=== PATIENT | female | born 1955 | race Caucasian/White ===

== ENCOUNTER 2023-07-15 12:01 | Inpatient (IN) | payer MEDICARE, MEDICAID, SELFPAY ==
[2023-07-15] VITALS (10 sets, daily range): BP systolic 0–162; BP diastolic 0–85; PULSE 0–96; RESP 14–18; TEMP 36.4–36.6; O2SAT 0–99; BMI 29.3
[2023-07-15] MEDS: OLANZapine 10 MG VIAL IM (12:20)
[2023-07-15] MEDS: LORazepam 2 MG/ML VIAL IM (12:20)
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
--- NOTE | 2023-07-15 12:40 | PC.NURSE ---
PT MEDICALLY/BEHAVIORAL (4 POINT RESTRAINT) INITIATED AT 1220 WITH , SECURITY, MANAGER REGIONAL, CLINICAL RN AND PCT AT BEDSIDE.
[2023-07-15 12:52] LABS: MANUAL DIFF FLAG NO
[2023-07-15 12:55] LABS: Basophils Percent Auto 0.2 % (0-2); Eosinophils Absolute Auto 0.1 X10*3/uL (0.0-0.4); Eosinophils Percent Auto 1.5 % (0-4); Hematocrit 42.7 % (37.0-47.0); Hemoglobin 13.7 g/dl (12.0-16.0); Imm Gran Abs Auto 0.03 X10*3/uL (0.00-0.03); Imm Gran Pct Auto 0.3 % (0.0-0.4); Lymphocytes Percent Auto 22.4 % (20-40); Mean Corpuscular HGB Conc 32.1 g/dl (31.0-35.0); Mean Corpuscular Hemoglobin 29.6 pg (27.0-33.0); Mean Corpuscular Volume 92.2 fL (80.0-98.0); Mean Platelet Volume 9.7 fL (9.4-12.3); Monocytes Absolute Auto 0.6 X10*3/uL (0.1-1.2); Monocytes Percent Auto 6.4 % (2-11); Neutrophils Absolute Auto 6.1 x10*3/uL (2.0-8.3); Neutrophils Percent Auto 69.2 % (45-73); Platelet Count 323 X10*3/uL (160-400); Red Blood Count 4.63 X10*6/uL (4.20-5.50); Red Cell Distribution Width 13.9 % (11.0-16.0); White Blood Count 8.8 X10*3/uL (4.8-10.8)
[2023-07-15 13:11] LABS: Acetaminophen LAB < 3 mcg/mL (<30); Salicylate < 5.0 mg/dL (15-30)
[2023-07-15 13:17] LABS: Alanine Aminotransferase 15 U/L (0-31); Albumin Level 3.8 g/dL (3.5-5.0); Alkaline Phosphatase 85 U/L (39-117); Anion Gap 13 (12-20); Aspartate Amino Transferase 24 U/L (5-31); Bilirubin Direct 0.2 mg/dL (0.0-0.5); Bilirubin Total 0.2 mg/dL (0.0-1.0); Blood Urea Nitrogen 8 mg/dL (9-16); Carbon Dioxide 24 mmol/L (22-29); Chloride 111 mmol/L (96-108); Creatinine Clr Calc Pharmacy 52.8; Estimated Glomerular Filt Rate > 60; Ethanol < 10 mg/dL; Glucose Random 132 mg/dL (60-115); Potassium 3.2 mmol/L (3.3-5.1); Sodium 145 mmol/L (135-145)
[2023-07-15 13:32] LABS: Influenza A PCR NEGATIVE (Negative); Influenza B PCR NEGATIVE (Negative); Resp Syncy Virus RNA Qual PCR NEGATIVE (Negative); SARS COV2 PCR INHOUSE NEGATIVE (Negative)
--- NOTE | 2023-07-15 13:41 | PC.NURSE ---
PT IS SLEEPING RESP EVEN AND UNLABORED. UNABLE TO MED AT THIS TIME PER MAR WITH POTASSIUM. AWARE.
--- NOTE | 2023-07-15 13:57 | PC.NURSE ---
Addendum entered by Charlette Rosa 07/15/23 14:00: THIS SMALL CONTAINER WAS RETURNED WITH THESE MEDS TO PT'S BELONGINGS. Original Note: THESE MEDS(ONE EACH, IN A SMALL CLEAR CONTAINER) WERE FOUND IN WITH PT'S BELONGINGS - SWEROQUEL 300MG, A VITO, BENADRYL 25MG, ASPIRIN 325MG AND ONE TABLET PLAIN WHITE WHICH COULD NOT BE IDENTIFIED.
[2023-07-15 14:48] LABS: Free T4 (Free Thyroxine) 0.94 ng/dL (0.71-1.85)
[2023-07-15] MEDS: Potassium Chloride Packet 20 MEQ PACKET 40 MEQ PO (19:07)
[2023-07-16 07:43] LABS: Appearance Urine Clear; Color Urine Yellow; Glucose Urine UA Negative (Negative); Leukocyte Esterase Urine Negative (Negative); Nitrite Urine Negative (Negative); PH 6.5 (5.0-9.0); Urine Blood Negative (Negative); Urine Ketones Trace mg/dL (Negative); Urine Protein Trace mg/dL (Neg-Trace)
--- NOTE | 2023-07-16 07:44 | PHA.MEDREC ---
Pharmacy Consult ? Medication Reconciliation Pharmacy has completed the medication reconciliation. Reviewed med rec done by nursing
[2023-07-16 07:48] LABS: Amphetamine Screen Urine Not Detected (Not Detect); Barbiturates, Urine Not Detected (Not Detect); Benzodiazepines Screen Urine Not Detected (Not Detect); Cannabinoid Screen Urine POSITIVE (Not Detect); Cocaine Screen Urine Not Detected (Not Detect); Fentanyl, urine Not Detected (Not Detect); Opiate Screen Urine Not Detected (Not Detect); Phencyclidine Screen Urine Not Detected (Not Detect)
[2023-07-16] MEDS: Levothyroxine Sodium 75 MCG TABLET PO (08:44)
[2023-07-16 08:51] VITALS: BP 247/92; PULSE 72; RESP 18; TEMP 36.9; O2SAT 97
[2023-07-16] MEDS: captopriL 25 MG TABLET 100 MG PO ×2 (08:53→20:42)
--- NOTE | 2023-07-16 08:56 | PC.NURSE ---
assumed care of pt at 0700. pt awake and alert, walking around unit. pt BP noted to be high and documented in worklist. Dr. Sherman made aware. pt medicated per jun. pt currently laying in bed trying to sleep. rr even/unlabored. plan of care ongoing.
[2023-07-16] MEDS: amLODIPine Besylate 10 MG TABLET PO (08:59)
--- NOTE | 2023-07-16 09:27 | ECG_ITS ---
Test Reason : QT INTERVAL Blood Pressure : / mmHG Vent. Rate : 066 BPM Atrial Rate : 066 BPM P-R Int : 122 ms QRS Dur : 074 ms QT Int : 412 ms P-R-T Axes : 063 060 039 degrees QTc Int : 431 ms Normal sinus rhythm Normal ECG No previous ECGs available Referred By: Veronique Alonzo Electronically Signed By:Luis E Meng
[2023-07-16 09:37] VITALS: BP 216/92; PULSE 64; RESP 16
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
--- NOTE | 2023-07-16 14:37 | PC.NURSE ---
inpatient sung-psych nurse's aware of pt elevated BP and to repeat BP once on floor.
[2023-07-16 15:16] VITALS: BP 189/88; PULSE 70; RESP 16; O2SAT 97
[2023-07-16 15:20] VITALS: TEMP 35.9
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
[2023-07-16 18:00] VITALS: BP 193/91; PULSE 62; RESP 18; TEMP 36.3; O2SAT 98
[2023-07-17] MEDS: Levothyroxine Sodium 75 MCG TABLET PO (06:29)
[2023-07-17 07:00] VITALS: BMI 26.7
[2023-07-17 08:23] LABS: Alanine Aminotransferase 16 U/L (0-31); Alkaline Phosphatase 86 U/L (39-117); Anion Gap 13 (12-20); Aspartate Amino Transferase 24 U/L (5-31); Bilirubin Total 0.5 mg/dL (0.0-1.0); Blood Urea Nitrogen 10 mg/dL (9-16); Carbon Dioxide 28 mmol/L (22-29); Chloride 106 mmol/L (96-108); Cholesterol 180 mg/dL (<200); Estimated Glomerular Filt Rate > 60; Glucose Fasting 103 mg/dL (60-99); HDL Cholesterol 51 mg/dL (>40); LDL Cholesterol Calculated 105 mg/dL (<100); Potassium 4.9 mmol/L (3.3-5.1); Sodium 142 mmol/L (135-145); Total Protein 7.6 g/dL (6.5-8.0); Triglycerides 123 mg/dL (<150)
[2023-07-17 08:30] VITALS: BP 146/85; PULSE 90; RESP 18; TEMP 36.1; O2SAT 97
[2023-07-17] MEDS: captopriL 25 MG TABLET 100 MG PO ×2 (09:00→20:53)
--- NOTE | 2023-07-17 12:01 | HO.PSYADMNOT ---
HPI Chief Complaint: Psychosis Diagnostics Vital Signs (24Hr): Vital Signs - 24 hr 07/16/23 15:16 07/16/23 15:20 07/16/23 18:00 Temperature 96.7 F L 97.3 F Pulse Rate 70 62 Respiratory Rate 16 18 Blood Pressure 189/88 H 193/91 H Pulse Oximetry 97 98 Oxygen Delivery Method Room Air Room Air 07/17/23 08:30 Temperature 97.0 F Pulse Rate 90 Respiratory Rate 18 Blood Pressure 146/85 H Pulse Oximetry 97 Oxygen Delivery Method Room Air BMI result Body Mass Index 29.3 Labs 07/15/23 12:47 07/17/23 07:53 Labs: Laboratory Results - last 48 hr 07/15/23 07/16/23 07/17/23 12:47 07:32 07:53 WBC 8.8 RBC 4.63 Hgb 13.7 Hct 42.7 MCV 92.2 MCH 29.6 MCHC 32.1 RDW 13.9 Plt Count 323 MPV 9.7 Immature Gran % (Auto) 0.3 Neut % (Auto) 69.2 Lymph % (Auto) 22.4 [place] % (Auto) 6.4 Eos % (Auto) 1.5 Baso % (Auto) 0.2 Lymph # (Auto) 2.0 [place] # (Auto) 0.6 Eos # (Auto) 0.1 Baso # (Auto) 0.0 Abs Immat Gran (auto) 0.03 Absolute Neuts (auto) 6.1 Absolute Nucleated RBC 0.000 Nucleated RBC % (auto) 0.0 Sodium 145 142 Potassium 3.2 L 4.9 D Chloride 111 H 106 Carbon Dioxide 24 28 Anion Gap 13 13 BUN 8 L 10 Creatinine 0.89 0.87 Estim Creat Clear Calc 52.8 54.0 Estimated GFR > 60 > 60 Random Glucose 132 H Fasting Glucose 103 H Calcium 9.0 10.0 D Magnesium 2.0 Total Bilirubin 0.2 0.5 Direct Bilirubin 0.2 AST 24 24 ALT 15 16 Alkaline Phosphatase 85 86 Total Protein 7.0 7.6 Albumin 3.8 4.0 Triglycerides 123 Cholesterol 180 LDL Cholesterol, Calc 105 H HDL Cholesterol 51 TSH 5.60 H Free T4 0.94 Urine Color Yellow Urine Appearance Clear Urine pH 6.5 Ur Specific [place] 1.020 Urine Protein Trace Urine Glucose (UA) Negative Urine Ketones Trace Urine Blood Negative Urine Nitrite Negative Ur Leukocyte Esterase Negative Salicylates < 5.0 L Urine Opiates Screen Not Detected Urine Fentanyl Screen Not Detected Acetaminophen < 3 Ur Barbiturates Screen Not Detected Ur Phencyclidine Scrn Not Detected Ur Amphetamines Screen Not Detected U Benzodiazepines Scrn Not Detected Urine Cocaine Screen Not Detected U Marijuana (THC) Screen POSITIVE H Ethyl Alcohol < 10 Influenza Type A (PCR) NEGATIVE Influenza Type B (PCR) NEGATIVE RSV RNA Qual (PCR) NEGATIVE SARS-CoV-2 RNA (RT-PCR) NEGATIVE Meds/Allergies Meds Home Medications ?Medication ?Instructions ?Recorded ?Confirmed ?Type captopril 100 mg tablet 100 mg PO BID 07/16/23 07/16/23 History levothyroxine 75 mcg tablet 75 mcg PO DAILY 07/16/23 07/16/23 History Allergies Allergies Allergy/AdvReac Type Severity Reaction Status Date / Time codeine Allergy Rash Verified 07/15/23 12:37 Assessment & Plan Statement Statement: I have reviewed the history and physical and performed a pertinent examination on my patient. No changes have occurred unless specified. If the History and Physical was not performed prior to admission, the Hospitalist's service will be consulted for completing the admission physical. Time Spent With Patient Time: Total time managing care of this patient today ____ minutes.
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
[2023-07-17 18:00] VITALS: BP 187/87; PULSE 58; RESP 16; TEMP 36.2; O2SAT 96
[2023-07-17] MEDS: QUEtiapine Fumarate 50 MG TABLET PO (20:53)
[2023-07-18] MEDS: Levothyroxine Sodium 75 MCG TABLET PO (05:55)
[2023-07-18] MEDS: Acetaminophen 325 MG TABLET 650 MG PO ×2 (05:59→20:45)
[2023-07-18 07:45] VITALS: BP 225/89; PULSE 72; RESP 16; TEMP 36.2; O2SAT 98
[2023-07-18] MEDS: captopriL 25 MG TABLET 100 MG PO ×2 (08:13→20:44)
[2023-07-18 08:35] VITALS: BP 180/86; PULSE 71; O2SAT 99
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
--- NOTE | 2023-07-18 10:46 | PC.NURSE ---
Vital signs completed @ 0745. Patients BP elevated @ 225/89 HR- 72, SPO2- 98% . Recheck @ 0835 BP- 180/86, HR 71. Dr Feldman notified of results in team. No change in orders @ present.
[2023-07-18 12:29] VITALS: BP 169/81; PULSE 73
[2023-07-18 18:00] VITALS: BP 197/91; PULSE 67; RESP 18; TEMP 35.5; O2SAT 94
[2023-07-18] MEDS: QUEtiapine Fumarate 100 MG TABLET PO (20:44)
[2023-07-18] MEDS: traZODone HCL 50 MG TABLET PO (20:45)
[2023-07-18] MEDS: hydrOXYzine HCL 25 MG TABLET PO (20:46)
[2023-07-19] MEDS: Levothyroxine Sodium 75 MCG TABLET PO (06:00)
[2023-07-19 08:18] VITALS: BP 192/107; PULSE 80; RESP 16; TEMP 36.7; O2SAT 96
[2023-07-19] MEDS: captopriL 25 MG TABLET 100 MG PO ×2 (08:26→20:46)
[2023-07-19] MEDS: Acetaminophen 325 MG TABLET 650 MG PO ×2 (08:28→20:46)
[2023-07-19 18:00] VITALS: BP 178/85; PULSE 68; RESP 18; TEMP 36.2; O2SAT 95
[2023-07-19] MEDS: QUEtiapine Fumarate 100 MG TABLET PO (20:46)
--- NOTE | 2023-07-19 21:28 | HO.PSYCHPN ---
Subjective Subjective Date of Service: 07/19/23 Reason For Visit: Psychosis Subjective Notes: Conditional Voluntary and 3 Day Healthcare Proxy: No Guardianship: No Medical Problems Affecting Mental Status: No Interim History: Patient seen in dining room, speaking with peers. Eating late breakfast. Denies any acute issues. At baseline with confusion but otherwise pleasant. Per nursing staff, patient slept last night and was complaining of something in her teeth. Medication Compliance: Yes Side effects from medications: No Review of Systems Acute medical concerns: No Mental Status Exam Mental Status Exam Patient Appearance: Disheveled and Appropriate Patient Orientation: Person Level of Consciousness: Awake and Restless Patient Behavior: Appropriate, Cooperative (variable) and Confused Mood Description: Appropriate Affect Description: Constricted Patient Cognition Impaired: Yes Ability to Follow Directions: Fair Speech Pattern: Cofabulation, Animated, Pressured and Includes Profanity Diagnostics Vital Signs (24Hr): Vital Signs - 24 hr 07/19/23 08:18 07/19/23 18:00 Temperature 98.1 F 97.1 F Pulse Rate 80 68 Respiratory Rate 16 18 Blood Pressure 192/107 H 178/85 H Pulse Oximetry 96 95 Oxygen Delivery Method Room Air Room Air BMI result Body Mass Index 26.7 Labs 07/15/23 12:47 07/17/23 07:53 Medications Medications Current Medications Acetaminophen (Acetaminophen 325 Mg Tablet) 650 mg PO Q6H PRN PRN Reason: Headache/Pain Mild Scale (1-3) Last Admin: 07/19/23 20:46 Dose: 650 mg Al Hydroxide/Mg Hydroxide (Magnesium Hydrox/Alum Hydrox 30 Ml Oral.Susp) 30 ml PO Q6H PRN PRN Reason: Heartburn/Nausea Captopril (Captopril 25 Mg Tablet) 100 mg PO BID [facility] Last Admin: 07/19/23 20:46 Dose: 100 mg Hydroxyzine HCl (Hydroxyzine Hcl 25 Mg Tablet) 25 mg PO Q6H PRN PRN Reason: Anxiety Last Admin: 07/18/23 20:46 Dose: 25 mg Levothyroxine Sodium (Levothyroxine Sodium 75 Mcg Tablet) 75 mcg PO DAILY@0600 [facility] Last Admin: 07/19/23 06:00 Dose: 75 mcg Magnesium Hydroxide (Milk Of Magnesia 30 Ml Oral.Susp) 30 ml PO DAILY PRN PRN Reason: Constipation Quetiapine Fumarate (Quetiapine Fumarate 100 Mg Tablet) 100 mg PO BEDTIME [facility] Last Admin: 07/19/23 20:46 Dose: 100 mg Trazodone HCl (Trazodone Hcl 50 Mg Tablet) 50 mg PO BEDTIME MRX1 PRN PRN Reason: Insomnia Last Admin: 07/18/23 20:45 Dose: 50 mg Allergies Allergies Allergy/AdvReac Type Severity Reaction Status Date / Time codeine Allergy Rash Verified 07/15/23 12:37 Assessment & Plan Assessment & Plan (1) Delusions: Status: Acute Code(s): F22 - Delusional disorders Plan pt signed a 3 day collect collateral information Increase seroquel to 100mg at bedtime and titrate as tolerated Reason for continued inpatient stay Substantial Risk for: med/psych decompensation Time Spent With Patient Time: Total time managing care of this patient today ____ minutes.
[2023-07-20] MEDS: Levothyroxine Sodium 75 MCG TABLET PO (06:32)
[2023-07-20 08:05] VITALS: BP 155/84; PULSE 87; RESP 18; TEMP 36; O2SAT 95
[2023-07-20] MEDS: captopriL 25 MG TABLET 100 MG PO ×2 (09:34→20:44)
[2023-07-20 18:00] VITALS: BP 190/98; PULSE 68; RESP 20; TEMP 36.1; O2SAT 96
[2023-07-20] MEDS: QUEtiapine Fumarate 100 MG TABLET PO (21:50)
--- NOTE | 2023-07-20 23:37 | P.PNPSI_ITS ---
Subjective Subjective Date of Service: 07/20/23 Reason For Visit: Psychosis Subjective Notes: Conditional Voluntary and 3 Day Healthcare Proxy: No Guardianship: No Medical Problems Affecting Mental Status: No Interim History: Patient was found asleep in bed this morning. Appears comfortable, in no acute distress. Discussed with nursing staff. Patient was up all night, restless and pacing. Delusional, spoke about glitter . She has been asleep this morning since 4 am. Staff are allowing her to rest. 3 day is up on 07/22 Medication Compliance: Yes Side effects from medications: No Mental Status Exam Mental Status Exam Narrative: Patient asleep in bed. Appears calm, comfortable, in no acute distress. Unable to obtain to assess mood/affect, thought process/content, perception, cognition, insight/judgment Diagnostics Vital Signs (24Hr): Vital Signs - 24 hr 07/20/23 08:05 07/20/23 18:00 Temperature 96.8 F 96.9 F Pulse Rate 87 68 Respiratory Rate 18 20 Blood Pressure 155/84 H 190/98 H Pulse Oximetry 95 96 Oxygen Delivery Method Room Air Room Air BMI result Body Mass Index 26.7 Labs 07/15/23 12:47 07/17/23 07:53 Medications Medications Current Medications Acetaminophen (Acetaminophen 325 Mg Tablet) 650 mg PO Q6H PRN PRN Reason: Headache/Pain Mild Scale (1-3) Last Admin: 07/19/23 20:46 Dose: 650 mg Al Hydroxide/Mg Hydroxide (Magnesium Hydrox/Alum Hydrox 30 Ml Oral.Susp) 30 ml PO Q6H PRN PRN Reason: Heartburn/Nausea Captopril (Captopril 25 Mg Tablet) 100 mg PO BID [facility] Last Admin: 07/20/23 20:44 Dose: 100 mg Hydroxyzine HCl (Hydroxyzine Hcl 25 Mg Tablet) 25 mg PO Q6H PRN PRN Reason: Anxiety Last Admin: 07/18/23 20:46 Dose: 25 mg Levothyroxine Sodium (Levothyroxine Sodium 75 Mcg Tablet) 75 mcg PO DAILY@0600 [facility] Last Admin: 07/20/23 06:32 Dose: 75 mcg Magnesium Hydroxide (Milk Of Magnesia 30 Ml Oral.Susp) 30 ml PO DAILY PRN PRN Reason: Constipation Quetiapine Fumarate (Quetiapine Fumarate 100 Mg Tablet) 100 mg PO BEDTIME [facility] Last Admin: 07/20/23 21:50 Dose: 100 mg Trazodone HCl (Trazodone Hcl 50 Mg Tablet) 50 mg PO BEDTIME MRX1 PRN PRN Reason: Insomnia Last Admin: 07/18/23 20:45 Dose: 50 mg Allergies Allergies Allergy/AdvReac Type Severity Reaction Status Date / Time codeine Allergy Rash Verified 07/15/23 12:37 Assessment & Plan Assessment & Plan (1) Delusions: Status: Acute Code(s): F22 - Delusional disorders Plan pt signed a 3 day collect collateral information Increase seroquel to 100mg at bedtime and titrate as tolerated Reason for continued inpatient stay Substantial Risk for: med/psych decompensation Time Spent With Patient Time: Total time managing care of this patient today ____ minutes.
[2023-07-21] MEDS: Levothyroxine Sodium 75 MCG TABLET PO (05:54)
--- NOTE | 2023-07-21 08:26 | P.PNPSI_ITS ---
Subjective Subjective Date of Service: 07/21/23 Reason For Visit: Psychosis Subjective Notes: Conditional Voluntary Interim History: Pt had some difficulty sleeping through the night. She presents as paranoid with staff and peer. She reports she does not have mental illness. we discussed increase SBP 180-190 need to add second anti-htn medication like amlodipine. Also will add risperidone for psychosis and delusions. Diagnostics Vital Signs (24Hr): Vital Signs - 24 hr 07/20/23 18:00 Temperature 96.9 F Pulse Rate 68 Respiratory Rate 20 Blood Pressure 190/98 H Pulse Oximetry 96 Oxygen Delivery Method Room Air BMI result Body Mass Index 26.7 Labs 07/15/23 12:47 07/17/23 07:53 Medications Medications Current Medications Acetaminophen (Acetaminophen 325 Mg Tablet) 650 mg PO Q6H PRN PRN Reason: Headache/Pain Mild Scale (1-3) Last Admin: 07/19/23 20:46 Dose: 650 mg Al Hydroxide/Mg Hydroxide (Magnesium Hydrox/Alum Hydrox 30 Ml Oral.Susp) 30 ml PO Q6H PRN PRN Reason: Heartburn/Nausea Captopril (Captopril 25 Mg Tablet) 100 mg PO BID [facility] Last Admin: 07/20/23 20:44 Dose: 100 mg Hydroxyzine HCl (Hydroxyzine Hcl 25 Mg Tablet) 25 mg PO Q6H PRN PRN Reason: Anxiety Last Admin: 07/18/23 20:46 Dose: 25 mg Levothyroxine Sodium (Levothyroxine Sodium 75 Mcg Tablet) 75 mcg PO DAILY@0600 [facility] Last Admin: 07/21/23 05:54 Dose: 75 mcg Magnesium Hydroxide (Milk Of Magnesia 30 Ml Oral.Susp) 30 ml PO DAILY PRN PRN Reason: Constipation Quetiapine Fumarate (Quetiapine Fumarate 100 Mg Tablet) 100 mg PO BEDTIME [facility] Last Admin: 07/20/23 21:50 Dose: 100 mg Trazodone HCl (Trazodone Hcl 50 Mg Tablet) 50 mg PO BEDTIME MRX1 PRN PRN Reason: Insomnia Last Admin: 07/18/23 20:45 Dose: 50 mg Allergies Allergies Allergy/AdvReac Type Severity Reaction Status Date / Time codeine Allergy Rash Verified 07/15/23 12:37 Assessment & Plan Assessment & Plan (1) Delusions: Status: Acute Code(s): F22 - Delusional disorders Plan 07/20 add risperidone 1mg po BID for psychosis, as it may take longer and higher dose for seroquel to see antipsychotic effect. added amlodipine 5mg po daily for consistently high SBP 180-190 even after taking LINNEA-I. Reason for continued inpatient stay Substantial Risk for: inability to function Time Spent With Patient Time: Total time managing care of this patient today ____ minutes.
[2023-07-21] MEDS: captopriL 25 MG TABLET 100 MG PO ×2 (08:30→21:57)
[2023-07-21] MEDS: Acetaminophen 325 MG TABLET 650 MG PO (11:18)
[2023-07-21 16:10] VITALS: BP 165/81; PULSE 59; RESP 18
[2023-07-21] MEDS: amLODIPine Besylate 5 MG TABLET PO (16:10)
[2023-07-21 18:00] VITALS: BP 134/72; PULSE 61; RESP 18; TEMP 35.8; O2SAT 97
[2023-07-21] MEDS: QUEtiapine Fumarate 100 MG TABLET PO (21:57)
[2023-07-22] MEDS: Levothyroxine Sodium 75 MCG TABLET PO (05:52)
[2023-07-22 08:34] VITALS: BP 177/81; PULSE 67; RESP 18; TEMP 36.3; O2SAT 99
[2023-07-22] MEDS: amLODIPine Besylate 5 MG TABLET PO (08:35)
[2023-07-22] MEDS: captopriL 25 MG TABLET 100 MG PO ×2 (08:36→20:48)
[2023-07-22 09:12] VITALS: BP 165/72; PULSE 60
--- NOTE | 2023-07-22 10:08 | HO.PSYCHPN ---
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 She denies SI/HI. She is sleeping well. She agrees to continue seroquel. She declines any other antipsychotic. She declines to retract 3 day notice. No evidence of imminent harm to self or others. She has been chronically psychotic and delusional without treatment for the most part or under treated. She is visible on the unit. no aggression towards self or others. Review of Systems Review of Systems ROS unable to be obtained agitation Mental Status Exam Mental Status Exam Patient Appearance: Disheveled and Appropriate Patient Orientation: Person Level of Consciousness: Awake and Restless Patient Behavior: Appropriate, Cooperative (variable) and Confused Mood Description: Appropriate Affect Description: Constricted Patient Cognition Impaired: Yes Ability to Follow Directions: Fair Speech Pattern: Cofabulation, Animated, Pressured and Includes Profanity Diagnostics Vital Signs (24Hr): Vital Signs - 24 hr 07/21/23 16:10 07/21/23 18:00 07/22/23 08:34 Temperature 96.4 F L 97.4 F Pulse Rate 59 61 67 Respiratory Rate 18 18 18 Blood Pressure 165/81 H 134/72 177/81 H Pulse Oximetry 97 99 Oxygen Delivery Method Room Air Room Air 07/22/23 09:12 Temperature Pulse Rate 60 Respiratory Rate Blood Pressure 165/72 H Pulse Oximetry Oxygen Delivery Method BMI result Body Mass Index 26.7 Labs 07/15/23 12:47 07/17/23 07:53 Medications Medications Current Medications Acetaminophen (Acetaminophen 325 Mg Tablet) 650 mg PO Q6H PRN PRN Reason: Headache/Pain Mild Scale (1-3) Last Admin: 07/21/23 11:18 Dose: 650 mg Al Hydroxide/Mg Hydroxide (Magnesium Hydrox/Alum Hydrox 30 Ml Oral.Susp) 30 ml PO Q6H PRN PRN Reason: Heartburn/Nausea Amlodipine Besylate (Amlodipine Besylate 5 Mg Tablet) 5 mg PO DAILY [facility]; Protocol Last Admin: 07/22/23 08:35 Dose: 5 mg Captopril (Captopril 25 Mg Tablet) 100 mg PO BID [facility] Last Admin: 07/22/23 08:36 Dose: 100 mg Hydroxyzine HCl (Hydroxyzine Hcl 25 Mg Tablet) 25 mg PO Q6H PRN PRN Reason: Anxiety Last Admin: 07/18/23 20:46 Dose: 25 mg Levothyroxine Sodium (Levothyroxine Sodium 75 Mcg Tablet) 75 mcg PO DAILY@0600 [facility] Last Admin: 07/22/23 05:52 Dose: 75 mcg Magnesium Hydroxide (Milk Of Magnesia 30 Ml Oral.Susp) 30 ml PO DAILY PRN PRN Reason: Constipation Quetiapine Fumarate (Quetiapine Fumarate 100 Mg Tablet) 100 mg PO BEDTIME [facility] Last Admin: 07/21/23 21:57 Dose: 100 mg Risperidone (Risperidone 1 Mg Tablet) 1 mg PO BID [facility] Last Admin: 07/22/23 08:37 Dose: Not Given Trazodone HCl (Trazodone Hcl 50 Mg Tablet) 50 mg PO BEDTIME MRX1 PRN PRN Reason: Insomnia Last Admin: 07/18/23 20:45 Dose: 50 mg Allergies Allergies Allergy/AdvReac Type Severity Reaction Status Date / Time codeine Allergy Rash Verified 07/15/23 12:37 Assessment & Plan Assessment & Plan (1) Schizoaffective disorder, bipolar type: Status: Acute Code(s): F25.0 - Schizoaffective disorder, bipolar type Plan continue current tx. 3 day up tomorrow. Reason for continued inpatient stay Substantial Risk for: inability to function Time Spent With Patient Time: Total time managing care of this patient today ____ minutes.
[2023-07-22 18:00] VITALS: BP 184/85; PULSE 51; RESP 16; TEMP 35.7; O2SAT 99
[2023-07-22 20:48] VITALS: BP 184/85
[2023-07-22] MEDS: QUEtiapine Fumarate 100 MG TABLET PO (20:48)
[2023-07-23] MEDS: Levothyroxine Sodium 75 MCG TABLET PO (05:46)
[2023-07-23 06:00] VITALS: BP 181/90; PULSE 54; RESP 18; TEMP 36.2; O2SAT 98
[2023-07-23] MEDS: amLODIPine Besylate 5 MG TABLET PO (08:30)
[2023-07-23] MEDS: captopriL 25 MG TABLET 100 MG PO (08:30)
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
== END 2023-07-23 11:37 | disposition home or self-care (01) | DRG 885 ==
LOC: HO.ED 22:34 → HO.PGERI 07-16 12:20
PROVIDERS: Admitting Provider Psychiatry & Neurology Psychiatry; Emergency Provider Emergency Medicine; PCP Nurse Practitioner; Visit Provider Psychiatry & Neurology Psychiatry
DX: F25.0 Schizoaffective disorder, bipolar type (principal); E03.9 Hypothyroidism, unspecified; Z20.822 Contact with and (suspected) exposure to COVID-19; Z79.890 Hormone replacement therapy; Z79.899 Other long term (current) drug therapy
CPT/HCPCS: 0241U; 36415; 80048; 80053; 80061; 80076; 80143; 80179; 80307; 81003; 83735; 84439; 84443; 85025; 93005; 99285; J2060; J2359; S9485

== ENCOUNTER → 2023-07-16 09:27 | Outpatient (BNV) | payer MEDICARE, MEDICAID, SELFPAY | PROVIDERS: Admitting Provider Psychiatry & Neurology Psychiatry; Emergency Provider Emergency Medicine; PCP Nurse Practitioner; Visit Provider Internal Medicine Cardiovascular Disease | DX: F22 Delusional disorders (principal) | CPT/HCPCS: 93010 ==

== ENCOUNTER → 2023-07-16 12:18 | Outpatient (BNV) | payer MEDICARE, MEDICAID, SELFPAY | PROVIDERS: Admitting Provider Psychiatry & Neurology Psychiatry; Emergency Provider Emergency Medicine; PCP Nurse Practitioner; Visit Provider Clinical Nurse Specialist Psychiatric/Mental Health | DX: F25.0 Schizoaffective disorder, bipolar type (principal) | CPT/HCPCS: 90792; 99231; 99232; 99239 ==